=== PATIENT | female | born 1950 | race Caucasian/White ===

== ENCOUNTER 2016-11-05 18:24 | Emergency (ER) | payer OTHER, MEDICARE ==
[2016-11-05 21:19] VITALS: BP 190/102
== END 2016-11-05 21:20 | disposition home or self-care (01) | DRG 914 ==
LOC: ED 18:24
DX: S09.90XA Unspecified injury of head, initial encounter (principal); I10 Essential (primary) hypertension; E78.5 Hyperlipidemia, unspecified; V49.40XA Driver injured in collision with unspecified motor vehicles in traffic accident, initial encounter

== ENCOUNTER 2019-02-22 13:04 | Emergency (ER) | payer MEDICARE ==
[~2019-02-22] VITALS: Ht 165.1 cm; Wt 68.0 kg
[2019-02-22] MEDS ORDERED: LORTAB 5/3255 MG PO (14:41)
[2019-02-22 14:56] VITALS: BP 113/86
== END 2019-02-22 14:57 | disposition home or self-care (01) ==
LOC: ED 13:04
PROC: 2W3DX1Z Immobilization of Left Lower Arm using Splint (ICD-10-PCS; principal; 2019-02-22)
DX: S52.502A Unspecified fracture of the lower end of left radius, initial encounter for closed fracture (principal); I10 Essential (primary) hypertension; W01.198A Fall on same level from slipping, tripping and stumbling with subsequent striking against other object, initial encounter; Y92.009 Unspecified place in unspecified non-institutional (private) residence as the place of occurrence of the external cause